=== PATIENT | male | born 1945 | race Asian ===

== ENCOUNTER 2021-01-16 10:52 | Outpatient (CLI) | payer MEDICARE | END 2021-01-16 23:59 | disposition home or self-care (01) | LOC: RAD 10:52 | DX: I51.7 Cardiomegaly (principal); I50.9 Heart failure, unspecified; I70.0 Atherosclerosis of aorta; M85.88 Other specified disorders of bone density and structure, other site | CPT/HCPCS: 71046 ==

== ENCOUNTER 2021-01-29 11:58 | Outpatient (CLI) | payer MEDICARE | END 2021-01-29 23:59 | disposition home or self-care (01) | LOC: RAD 11:58 | DX: I50.9 Heart failure, unspecified (principal) | CPT/HCPCS: 71046 ==